=== PATIENT | female | born 1990 | race Caucasian/White ===

== ENCOUNTER 2017-05-26 17:33 | Inpatient (IN) | payer OTHER ==
[~2017-05-26] VITALS: Ht 157.5 cm; Wt 69.1 kg
[~2017-05-26 17:33] MED LIST: PREN-29 PO
[2017-05-26] MEDS ORDERED: LACTATED RINGER'S 1,000 ML IV SCH (18:42)
[2017-05-26 18:54] LABS: BASOPHILS % 0.2 % (0.0-2.0); EOSINOPHILS % 0.2 % (0.0-7.0); HEMATOCRIT 38.4 % (37.0-47.0); HEMOGLOBIN 13.2 g/dl (12.0-16.0); LYMPHOCYTES # 2.2 10^3/ul (0.8-2.9); LYMPHOCYTES % 17.5 % (15.0-51.0); MEAN CORPUSCULAR HEMOGLOBIN 33.1 pg (29.0-33.0); MEAN CORPUSCULAR HGB CONC 34.4 g/dl (32.0-37.0); MEAN CORPUSCULAR VOLUME 96.2 fl (82.0-101.0); MEAN PLATELET VOLUME 11.4 fl (7.4-10.4); MONOCYTES % 7.6 % (0.0-11.0); NEUTROPHIL # 9.3 10^3/ul (1.6-7.5); NEUTROPHILS % 73.4 % (39.0-77.0); PLATELET COUNT 231 10^3/UL (140-415); RED BLOOD COUNT 3.99 10^6/ul (4.20-5.40); RED CELL DISTRIBUTION WIDTH 12.9 % (11.5-14.5); WHITE BLOOD COUNT 12.7 10^3/ul (4.8-10.8)
[2017-05-26] MEDS ORDERED: OXYTOCIN 30 UNITS/LR 500 ML IV SCH ×3 (19:00)
[2017-05-26] MEDS ORDERED: BUTORPHANOL 2 MG INJ IV PRN (19:00)
[2017-05-26] MEDS ORDERED: CARBOPROST 250 MCG INJ IM PRN (19:00)
[2017-05-26] MEDS ORDERED: MISOPROSTOL 200 MCG TAB PR PRN (19:00)
[2017-05-26] MEDS ORDERED: LIDOCAINE 1% (MPF) 30 ML INJ INJ PRN (19:00)
[2017-05-26] MEDS ORDERED: IBUPROFEN 600 MG TAB PO PRN (19:00)
[2017-05-26] MEDS ORDERED: METHYLERGONOVINE 0.2 MG INJ IM PRN (19:00)
[2017-05-26] MEDS ORDERED: OXYTOCIN 30 UNITS/LR 500 ML IV PRN (19:00)
[2017-05-26 19:02] LABS: INR 0.9; PROTIME 12.1 Sec (12.2-14.2); PT RATIO 0.9
[2017-05-26 19:03] LABS: PARTIAL THROMBOPLASTIN TIME 24.7 Sec (25.0-35.0)
--- NOTE | 2017-05-26 19:10 | HP ---
Date/Time of Note Date/Time of Note DATE: 05/26/17 TIME: 19:08 OB - History Hx of Present Free Text/Dictation TERM IN LABOR Care: Good Care Ultrasounds: Normal mid trimester US Obstetrical Complications: None Medical Complications: None Past Family/Social History * Past Medical, Surgical, Family and Obstetric Histories reviewed from chart. OB Admission Exam Physical Exam HEENT: WNL Heart: Rhythm Normal Lungs: Clear, Equal Abdomen: WNL Extremities: Normal Reflexes: Normal Cervical Dilatation: 7cm Effacement: 75% Station: -1 Membranes: Ruptured Amniotic Fluid: Clear Heart Rate: 120's Accelerations: Accelerations Present Decelerations: No Decelerations Varibility: Marked Contractions on Admission: None Intensity: Moderate OB Assessment/Plan Reason for admission: active labor Plan: Expectant Management JUAN CONNOR MD May 26, 2017 19:10
[2017-05-26 19:19] VITALS: Ht 157.5 cm; Wt 69.1 kg
[2017-05-26 19:20] VITALS: BP 106/61; PULSE 82; RESP 18
[2017-05-26] MEDS ORDERED: FENTAnyl 2MCG/ML-ROPIV 0.2% 100 ML ONE (19:22)
[2017-05-26] MEDS: LACTATED RINGER'S 1,000 ML IV PRN ×2 (19:46→20:15)
--- NOTE | 2017-05-26 21:12 | LDN ---
Date/Time of Note Date/Time of Note DATE: 05/26/17 TIME: 21:11 Delivery Summary nsd w/o complications Placenta Delivered: Spontaneously Meconium: none Episiotomy: No Perineal laceration: 1 Anesthesia type: Epidural Estimated blood loss: 300 Sponge & Needle done & correct: Yes All needle counts correct: Yes Any foreign bodies felt in the: No Problems: JUAN CONNOR MD May 26, 2017 21:12
[2017-05-26 23:15] VITALS: BP 91/52; PULSE 87; RESP 20
[2017-05-26] MEDS: OXYTOCIN 30 UNITS/LR 500 ML IV SCH (23:31)
[2017-05-26] MEDS ORDERED: LACTATED RINGER'S 1,000 ML IV* SCH (23:31)
[2017-05-27] MEDS ORDERED: ACETAMINOPHEN 325 MG TAB PO PRN
[2017-05-27] MEDS ORDERED: CARBOPROST 250 MCG INJ IM PRN
[2017-05-27] MEDS ORDERED: BENZOCAINE 20% 56 ML SPRAY TOP PRN
[2017-05-27] MEDS ORDERED: MAGNESIUM HYDROXIDE 30ML CUP PO PRN
[2017-05-27] MEDS ORDERED: HYDROCODONE/APAP (5/325) TAB PO PRN
[2017-05-27] MEDS ORDERED: METHYLERGONOVINE 0.2 MG INJ IM PRN
[2017-05-27] MEDS ORDERED: OXYTOCIN 30 UNITS/LR 500 ML IV PRN
[2017-05-27] MEDS ORDERED: DIPHENHYDRAMINE 25 MG CAP PO PRN
[2017-05-27] MEDS ORDERED: MISOPROSTOL 200 MCG TAB PR PRN
[2017-05-27] MEDS ORDERED: ZOLPIDEM 5 MG TAB PO PRN
[2017-05-27] MEDS ORDERED: SENNA/DOCUSATE NA (8.6MG/50MG) TAB PO PRN
[2017-05-27] MEDS ORDERED: LANOLIN 7 GM TUBE TOP PRN
[2017-05-27] MEDS ORDERED: WITCH HAZEL/GLYCERIN PAD PR PRN
[2017-05-27] MEDS: IBUPROFEN 800 MG TAB PO SCH ×5 (01:27→23:52)
[2017-05-27] MEDS: OXYTOCIN 30 UNITS/LR 500 ML IV SCH (03:31)
[2017-05-27 04:00] VITALS: BP 92/53; PULSE 83; RESP 20
[2017-05-27 06:48] LABS: ABNORMAL IP MESSAGE 1; BASOPHILS % 0.2 % (0.0-2.0); EOSINOPHILS % 0.1 % (0.0-7.0); HEMATOCRIT 38.2 % (37.0-47.0); HEMOGLOBIN 12.6 g/dl (12.0-16.0); LYMPHOCYTES # 2.1 10^3/ul (0.8-2.9); LYMPHOCYTES % 11.6 % (15.0-51.0); MEAN CORPUSCULAR HEMOGLOBIN 32.6 pg (29.0-33.0); MEAN CORPUSCULAR VOLUME 98.7 fl (82.0-101.0); MEAN PLATELET VOLUME 11.6 fl (7.4-10.4); MONOCYTE # 1.6 10^3/ul (0.3-0.9); MONOCYTES % 8.6 % (0.0-11.0); NEUTROPHIL # 14.3 10^3/ul (1.6-7.5); NEUTROPHILS % 78.7 % (39.0-77.0); PLATELET COUNT 216 10^3/UL (140-415); RED BLOOD COUNT 3.87 10^6/ul (4.20-5.40); RED CELL DISTRIBUTION WIDTH 13.1 % (11.5-14.5); WHITE BLOOD COUNT 18.2 10^3/ul (4.8-10.8)
[2017-05-27 06:51] LABS: POSITIVE DIFF @See below
[2017-05-27 08:00] VITALS: BP 95/67; PULSE 85; RESP 19
[2017-05-27 16:00] VITALS: BP 102/63; RESP 18
--- NOTE | 2017-05-27 18:03 | PN ---
Date/Time of Note Date/Time of Note DATE: 05/27/17 TIME: 18:02 OB Subjective Subjective Subjective Denies any complaint. Breast-feeding. Reports some after pain. Ambulated. Vaginal bleeding decreased. Denies any depressive symptoms OB Objective Objective Objective General appearance: Alert and oriented 4. Patient does not appear to be in any acute distress Abdomen: Soft. Fundus firm below the umbilicus. Breast: No evidence of engorgement appreciated Extremities: No calf tenderness, negative Homans sign, no cords palpable OB Assessment/Plan Other Assessment: Postoperative day #1 Status post next Doing well Continue routine care Anticipate DC home tomorrow THOMAS MARCIAL MD May 27, 2017 18:03
[2017-05-27 19:55] VITALS: BP 98/57; PULSE 86; RESP 18
[2017-05-28 04:20] VITALS: BP 94/50; RESP 18
[2017-05-28] MEDS: IBUPROFEN 800 MG TAB PO SCH ×2 (06:01→12:22)
[2017-05-28 07:40] VITALS: BP 98/53; PULSE 71; RESP 18
[2017-05-28] MEDS ORDERED: DIPHTH/TET/ACEL PERTUSS (ADULT) 0.5 ML VIAL IM* ONE (09:00)
[2017-05-28] MEDS ORDERED: MEASLES,MUMPS,RUBELLA VACCINE INJ SC* ONE (09:00)
[2017-05-28] MEDS ORDERED: VARICELLA VACCINE LIVE/PF 1,350 UNIT/0.5 ML ML SC* ONE (09:00)
--- NOTE | 2017-05-28 15:20 | DS ---
Date/Time of Note Date/Time of Note DATE: 05/28/17 TIME: 15:20 Obstetrical Discharge Record Final Diagnosis Final Diagnosis: Term delivered Vaginal Delivery Obstetrical Delivery: Spontaneous Condition on Discharge Physical Assessment Voiding: Yes Bowel Movement: Yes Breast: Soft, non-tender Fundus: Firm Calf Tenderness: No Patient Condition: Stable RADHA RICHARD MD May 28, 2017 15:20
== END 2017-05-28 16:50 | disposition home or self-care (01) | DRG 775 ==
LOC: OBT 17:33 → EDSTATUS 17:36 → L-D 17:39 → OBG 22:41
PROVIDERS: ADMIT Obstetrics & Gynecology; ATTEND Obstetrics & Gynecology
PROC: 10E0XZZ Delivery of Products of Conception, External Approach (ICD-10-PCS; principal; 2017-05-26)
PROC: 3E033VJ Introduction of Other Hormone into Peripheral Vein, Percutaneous Approach (ICD-10-PCS; 2017-05-26)
DX: O48.0 Post-term pregnancy (principal); Z37.0 Single live birth; Z3A.40 40 weeks gestation of pregnancy
CPT/HCPCS: 62319; 85025; 85610; 85730; 86592; 86900; 86901; 90715; 90716; J2590; J3010; J7120